=== PATIENT | female | born 1975 | race Caucasian/White ===

== ENCOUNTER 2024-10-25 12:37 | Emergency (ER) | payer BC, SELFPAY ==
--- NOTE | ~2024-10-25 | XR_ITS ---
EXAMINATION: XR abdomen obstructive series DATE: 10/25/2024 13:48 INDICATION: Nausea and vomiting. Diarrhea. TECHNIQUE: Supine and upright views of the abdomen. FINDINGS: No prior studies for comparison. The visualized lung parenchyma is normal.. There is a nonobstructive bowel gas pattern. Gas and stool are seen throughout the colon to the level of the rectum. There is no free air. There are surgical changes in the pelvis. IMPRESSION: 1. No acute abdominal abnormality. Reviewed, dictated and finalized at location A.
--- OUTSIDE RECORDS SUMMARY | 2024-10-25 12:54 | XMS_ITS | Clinical Summary ---
Author Organization [facility] Address [address] [place] [id number] Phone Care Team Providers Care Ceramics Artist Name Role Phone Provider, None Primary Care Provider Unavailabl e Allergies No known active allergies Medications BUSPIRONE HCL PO Take by mouth. Activ e FLUOXETINE HCL PO Take by mouth. Activ e diphenoxylate-a tropine (LOMOTIL) 2.5-0.025 MG Tablet Take 1 Tab by mouth 4 times daily as needed for Diarrhea. 15 Tab 0 Active Additional Information Patient not taking.Reported on 09/24/2020 Active Problems No known active problems Social History Tobacco Use Types Packs/Day Years Used Date Smoking Tobacco: Never Smokeless Tobacco: Never Alcohol Use Standard Drinks/Week Comments Not Currently 0 (1 standard drink = 0.6 oz pur e alcohol) Comments No Sex and Gender Information Value Date Recorded Sex Assigned at Not on file Legal Sex Female 10:25 PM CDT Gender Identity Not on file Sexual Orientation Not on file Last Filed Vital Signs Vital Sign Reading Time Taken Comments Blood Pressure 112/62 09/24/2020 11:20 AM WELL POINT PUMPING SUPERVISOR Pulse 78 09/24/2020 11:20 AM WELL POINT PUMPING SUPERVISOR Temperature 36.6 C (97.8 F) 09/24/2020 11:20 AM WELL POINT PUMPING SUPERVISOR Respiratory Rate 20 09/24/2020 11:20 AM WELL POINT PUMPING SUPERVISOR Oxygen Saturation 98% 09/24/2020 11:20 AM WELL POINT PUMPING SUPERVISOR Inhaled Oxygen Concentration - - Weight 54.4 kg (120 lb) 01/29/2020 5:19 PM CDT Height 151.1 cm (4' 11.5 ) 01/29/2020 5:19 PM CD T Body Mass Index 23.83 01/29/2020 5:19 PM CDT Plan of Treatment Health Maintenance Due Date Last Done Comments Hepatitis C Virus (HCV) Screening 1976 Mammogram 1976 Hepatitis B Immunization (1 of 3 - 19+ 3-dose series) 12/29/1995 Pap Smear 1997 Cervical Cancer Screening (CCS) 2006 HPV/Cotest 2006 Discussion re Starting/Frequ ency of Mammograms 2016 Colonoscopy 2021 Colorectal Cancer Screening 2021 Influenza Immunization (#1) 2024 SARS-COV-2 Immunization ( season) 2024 Respiratory Syncytial Virus (RSV) Immunization (Adult) (1 - 1-dose 75+ series) 12/29/2051 DTaP/Tdap/Td Immunization Discontinued 06/21/2019 TdaP Immunization Completed 06/21/2019 Meningococcal Immunization (ACWY) Aged Out No longer eligible based on patient's age to complete this topic Pneumococcal Immunization Combined Aged Out No longer eligible b ased on patient's age to complete this topic Rotavirus Immunization Aged Out No lo nger eligible based on patient's age to complete this topic Insurance MEDICAID [place] [employer] [place] Care Teams Ceramics Artist Relationship Specialty Start Date End Date Provider, None MARISELA PCP - General 01/29/20
--- OUTSIDE RECORDS SUMMARY | 2024-10-25 12:54 | XMS_ITS | CONTINUITY OF CARE DOCUMENT ---
Author Name rolf bansal Address Unknown Organization [facility] Address [address] [place] [address] Phone [phone] Care Team Providers Care Lawn Maintenance Worker Name Role Phone rolf bansal Unavailable Unavailable INSURANCE PROVIDERS Payer name Policy type / Coverage type [employer] [facility] AND FAMILY SERVICES Medicaid 0 [id number]
--- OUTSIDE RECORDS SUMMARY | 2024-10-25 12:54 | XMS_ITS | Clinical Summary ---
Author Organization [facility] Address [address] [place] [address] Care Team Providers Care Take Away Worker Name Role Phone Sophie Lugo NP Unavailable Fernando Aguilar MD Unavailable Puneet Fernandez MD Primary Care Provider [phone] Allergies Active Allergy Reactions Criticality Noted Date Comments Propoxyphene-Acetami nophen Nausea & Vomiting Low 07/07/2021 Hydrocodone-Acetamin ophen Other (See comments) Low 07/07/2021 Uncontrollable shaking Medications famotidine (PEPCID) 20 mg tablet Take 1 tablet (20 mg total) by mouth as needed 2 Active ALPRAZolam (XANAX) 0.25 mg tablet Take 1 tablet (0.25 mg total) by mouth daily as needed 2 Active food supplemt, lactose-reduced 0.05 gram- 1.5 kcal/mL liquid Take 1 Units by mouth daily For nutritional supplement BMI >18 237 mL 1 3 Active fluticasone propionate (FLONASE) 50 mcg/actuation nasal spray Administer 2 sprays into each nostril 2 (two) times a day 60 mL 11 3 Active megestroL 40 mg/mL suspension Take 5 mL (200 mg total) by mouth daily 4 Active Active Problems Problem Noted Date Diagnosed Date Stress at work 06/06/2024 Assessment & Plan (09/06/2024 4:34 PM FIRE CONTROL ASSISTANT): Patient Xanax 0.25 half tablet very infrequently maybe once a week. Eating disorder 06/06/2024 Assessment & Plan (09/06/2024 4:31 PM FIRE CONTROL ASSISTANT): Patient has lost her taste with COVID and sometimes her taste returns partially other times not present. Patient states she lost 40 lb when she developed COVID. Gradually gained weight back. Patient's BMI is 16.5. Anosmia 11/23/2023 Numbness and tingling of upp er and lower extremities of both sides 11/23/2023 Tachycardia 11/23/2023 Vaccine counseling 06/19/2023 Body mass index (BMI) less than 16.5 06/19/2023 History of depression 03/11/2023 COVID-19 [employer] [place] manifes ting chronic loss of smell and taste 03/11/2023 SOB (shortness of breath) 02/03/2023 Assessment & Plan (09/06/2024 4:32 PM FIRE CONTROL ASSISTANT): Depressed at times symptoms started after having COVID. 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 She has been followed by the long COVID clinic at [facility]. Chronic diarrhea 11/10/2020 Assessment & Plan (11/10/2020 5:42 PM CDT): Patient has chronic intermittent diarrhea. Asymptomatic at this point. No worrisome signs. Discussed with the patient to call our office for further evaluation if symptoms recurred. She will need screening colonoscopy in 2 years. Mood disorder 06/24/2019 Encounter for preventive health examination 02/2019 Assessment & Plan (09/06/2024 4:48 PM FIRE CONTROL ASSISTANT): This is a patient here to establish care with me I have not seen her before she has a significant past history of long-haul COVID developing pneumonia lasted 3 weeks patient never returned to her previous state of health she has lost 40 lb at his stabilize. Weight loss attributed significant to the loss of taste she has respiratory problems shortness of breath does not tolerate inhalers because of tachycardia. [facility] She is stable in no distress at this time will proceed in getting hepatitis-B hepatitis-C testing, colon cancer screening and mammogram. Encounters Date Type Department Care Team Description 09/22/2024 Results Follow-Up [facility] [address] [place] [address] Puneet Fernandez MD 09/18/2024 3:30 PM FIRE CONTROL ASSISTANT Lab [facility] [address] [place] [address] Need for hepatitis C screening test; Need for hepatitis B screening test 09/18/2024 3:00 PM FIRE CONTROL ASSISTANT Ancillary Procedure [facility] [address] [place] [address] Encounter for screening mammogram for breast cancer 09/06/2024 3:30 PM FIRE CONTROL ASSISTANT Office Visit [facility] [address] [place] [address] Puneet Fernandez MD Need for hepatitis B screening test (Primary Dx); Need for hepatitis C screening test; Encounter for screening mammogram for breast cancer; Stress at work; Long COVID; Encounter for preventive health examination from Last 3 Months Immunizations Immunization Administration Dates Next Due Influenza, Unspecified 09/06/2024(Deferred: Emily ent Refused) Tdap 06/21/2019 Surgical History Surgery Date Site/Laterality Comments APPENDECTOMY Medical History Medical History Date Comments Depression Smoking previous, quit 2 006 Anemia Family History Medical History Relation Name Comments Cancer Mother Holly Arenas Stroke Mother Holly Arenas Relation Name Status Comments Mother Holly Arenas (Age 59) Social History Tobacco Use Types Packs/Day Years Used Date Smoking Tobacco: Former Cigarettes Smokeless Tobacco: Never Tobacco Cessation:Counseling Given: Not Answered Alcohol Use Standard Drinks/Week Comments Not Currently 0 (1 standard drink = 0.6 oz pur e alcohol) rarely PHQ-2 Answer Date Recorded PHQ-2 Total Score (If total score is 3 or more points, staff should administer the PHQ-9) 2 09/06/2024 Comments No Sex and Gender Information Value Date Recorded Sex Assigned at Not on file Legal Sex Female 7:57 AM FIRE CONTROL ASSISTANT Gender Identity Not on file Sexual Orientation Not on file Obstetrics History Para Term AB IAB SAB Ectopic Multiple Livin g Live Births 5 5 5 Date Outcome GA Total Labor Labor/2nd/3rd Weight Sex Type Anes PTL Ayesha A1 A5 Name Clin Term Term Term Term Term Last Filed Vital Signs Vital Sign Reading Time Taken Comments Blood Pressure 116/60 09/06/2024 3:35 PM FIRE CONTROL ASSISTANT Pulse 95 09/06/2024 3:35 PM FIRE CONTROL ASSISTANT Temperature 36.9 C (98.4 F) 09/06/2024 3:35 PM FIRE CONTROL ASSISTANT Respiratory Rate 16 09/06/2024 3:35 PM FIRE CONTROL ASSISTANT Oxygen Saturation 99% 09/06/2024 3:35 PM FIRE CONTROL ASSISTANT Inhaled Oxygen Concentration - - Weight 38.3 kg (84 lb 6.4 oz) 09/06/2024 3:35 PM FIRE CONTROL ASSISTANT Height 152.4 cm (5') 09/06/2024 3:35 PM FIRE CONTROL ASSISTANT Body Mass Index 16.48 09/06/2024 3:35 PM FIRE CONTROL ASSISTANT Plan of Treatment Health Maintenance Due Date Last Done Comments Cervical Cancer Screening 1976 Colon Cancer Screening-Colonoscopy 1976 Pneumococcal vaccine <65 (1 of 2 - PCV) 12/29/1995 Zoster Vaccine (1 of 2) 12/29/1995 Influenza Vaccine (Season Ended) 2025 Depression Screening 09/06/2025 09/06/2024 Regular Well Visit/Exam 18-64 09/06/2025 09/06/2024 Breast Cancer Screening-Mammogram 09/18/2025 09/18/2024, 05/11/2023, 03/27/2022, Additional history exists DTaP/Tdap/Td Vaccine (2 - Td or Tdap) 06/21/2029 06/21/2019 Hepatitis B Screening Completed 09/18/2024 Hepatitis C Screening Completed 09/18/2024 Procedures Procedure Name Priority Date/Time Associated Diagnosis Comments SCREENING MAMMOGRAM BILATERAL W IRINEO Schedule Routine, Read Routine (OP Routine) 09/18/2024 2:59 PM FIRE CONTROL ASSISTANT Encounter for screening mammogram for breast cancer HEPATITIS B SURFACE ANTIGEN Routine 09/18/2024 2:57 PM FIRE CONTROL ASSISTANT Need for hepatitis B screening test HEPATITIS B CORE ANTIBODY, TOTAL Routine 09/18/2024 2:57 PM FIRE CONTROL ASSISTANT Need for hepatitis B screening test HEPATITIS B SURFACE ANTIBODY (IMMUNE STATUS) Routine 09/18/2024 2:57 PM FIRE CONTROL ASSISTANT Need for hepatitis B screening test HEPATITIS C ANTIBODY Routine 09/18/2024 2:57 PM FIRE CONTROL ASSISTANT Need for hepatitis C screening test from Last 3 Months Results * Screening Mammogram Bilateral W Irineo (09/18/2024 2:59 PM FIRE CONTROL ASSISTANT) Anatomical Region Laterality Modality Breast Bilateral Mammography 09/18/2024 4:45 PM FIRE CONTROL ASSISTANT Impressions 09/18/2024 4:45 PM FIRE CONTROL ASSISTANT There is no mammographic evidence of malignancy. A 1 year screening mammogram is recommended. BI-RADS: 1 - Negative. The patient has been or will be contacted. The patient will be entered into a reminder system with a target due date of 1 year for her next mammogram. Electronically signed by: Yobani Kam M.D. Narrative 09/18/2024 4:45 PM FIRE CONTROL ASSISTANT EXAMINATION: SCREENING MAMMOGRAM BILATERAL W IRINEO ORDERING HEALTHCARE PROVIDER: PUNEET FERNANDEZ HISTORY: Routine screening mammography. COMPARISON: 05/11/2023, 03/27/2022, 12/03/2020 TECHNIQUE: CC and MLO views of the bilateral breasts were obtained with digital technique using breast tomosynthesis with C view. Computer aided detection was utilized. FINDINGS: DENSITY: The breasts are extremely dense, which lowers the sensitivity of mammography. BREASTS: There are no suspicious masses, suspicious calcifications, or other suspicious findings in either breast. There has been no suspicious interval change. Puneet Fernandez MD IMG MAMMO PROCEDURES Final Result * Hepatitis C antibody Blood (09/18/2024 2:57 PM FIRE CONTROL ASSISTANT) Hep C Ab Nonreactive Nonreactive Comment: Interpretive Data Nonreactive: Antibodies to HCV not detected. Does NOT exclude the possibility of recent exposure to HCV. Equivocal: Equivocal for HCV antibodies. Supplemental molecular testing will be automatically performed to determine infection status in accordance with current CDC screening recommendations. Reactive: Positive for HCV antibodies. This may represent current or past HCV infection. Supplemental molecular testing will be automatically performed to determine current infection status in accordance with current CDC screening recommendations. Interpretive data was last revised on 2019. Testing performed by: [facility], [address] [place] [address]., [id number] Blood 09/18/2024 2:57 PM FIRE CONTROL ASSISTANT 09/18/2024 7:34 PM FIRE CONTROL ASSISTANT Puneet Fernandez MD LAB MICROBIOLOGY - GENERAL ORDERABLES Final Result Performing Organization Address City/[facility]/ZIP Co de Phone Number [facility] [address] [facility] [place] [address] * Hepatitis B core antibody, total Blood (09/18/2024 2:57 PM FIRE CONTROL ASSISTANT) Hep B core IgG/IgM Nonreactive Nonreactive Comment:Testing performed by : [facility], [address] [place] [address]., [id number] Blood 09/18/2024 2:57 PM FIRE CONTROL ASSISTANT 09/19/2024 10:06 AM FIRE CONTROL ASSISTANT Puneet Fernandez MD LAB MICROBIOLOGY - GENERAL ORDERABLES Final Result [facility] [address] [facility] Department [place] [place] [address] * Hepatitis B surface antibody (immune status) Blood (09/18/2024 2:57 PM FIRE CONTROL ASSISTANT) HBsAb (immune status) Nonreactive Comment: Interpretive Data Nonreactive: This result is consistent with a lack of immunity to Hepatitis B Virus when used in the setting of routine screening. Equivocal: The immune status of the individual should be further assessed, if appropriate, after consideration of clinical status, risk factors, and additional diagnostic information. Reactive: This result is consistent with immunity to Hepatitis B Virus when used in the setting of routine screening. Current interpretive data was last revised on 19. Testing performed by: [facility], [address] [place] [address]., [id number] Blood 09/18/2024 2:57 PM FIRE CONTROL ASSISTANT 09/18/2024 7:34 PM FIRE CONTROL ASSISTANT Puneet Fernandez MD LAB MICROBIOLOGY - GENERAL ORDERABLES Final Result Performing Organization Address [facility] de Phone Number [facility] [address] [facility] Department [place] [address] * Hepatitis B Surface Antigen Blood (09/18/2024 2:57 PM FIRE CONTROL ASSISTANT) Pathologist [facility] HepBsAg Nonreactive Nonreactive Comment:Testing performed by : [facility], [address] [place] [address]., [id number] Blood 09/18/2024 2:57 PM FIRE CONTROL ASSISTANT 09/18/2024 7:34 PM FIRE CONTROL ASSISTANT Puneet Fernandez MD LAB MICROBIOLOGY - GENERAL ORDERABLES Final Result Performing Organization Address City/[facility] Co de Phone Number [facility] [address] [facility] [place] [address] from Last 3 Months Insurance [employer] BLUE [employer] PA [employer] Care Teams Take Away Worker Relationship Specialty Start Date End Date Puneet Fernandez MD [address] [address] PCP - General Internal Medicine 09/06/24 Sophie Lugo NP [address] [facility] [address] DIV IM INFECTIOUS DISEASE, [facility] [address] [place] [address] Nurse Practitioner Nurse Practitioner 05/18/23 Fernando Aguilar MD [address] [facility] [place] [address] Consulting Physician Pulmonary Disease 05/18/23 Naomi Fernandez, [facility] [address] [facility] [address] Sap Basis Administrator Infectious Diseases 05/31/22
--- OUTSIDE RECORDS SUMMARY | 2024-10-25 12:54 | XMS_ITS | Referral Summary ---
Author Organization [facility] Address [address] [place] [address] Care Team Providers Care Flight Physician Name Role Phone Sophie Lugo NP Unavailable Fernando Aguilar MD Unavailable Eyad Fernandez MD Primary Care Provider [phone] Encounters Date Type Department Care Team Description 09/22/2024 Results Follow-Up [facility] [address] [place] [address] Eyad Fernandez MD 09/18/2024 3:30 PM [facility] 1 [facility] [address] [place] [id number] Need for hepatitis C screening test; Need for hepatitis B screening test 09/18/2024 3:00 PM [facility] Ancillary Procedure [facility] 1 [facility] [address] [place] [address] Encounter for screening mammogram for breast cancer 09/06/2024 3:30 PM [facility] Office Visit [facility] [address] [facility] [address] [place] [address] Eyad Fernandez MD Need for hepatitis B screening test (Primary Dx); Need for hepatitis C screening test; Encounter for screening mammogram for breast cancer; Stress at work; Long COVID; Encounter for preventive health examination from Last 3 Months Allergies Active Allergy Reactions Criticality Noted Date [...] 06/06/2024 Assessment & Plan (09/06/2024 4:34 PM [facility]): Patient Xanax 0.25 half tablet very infrequently maybe once a week. Eating disorder 06/06/2024 Assessment & Plan (09/06/2024 4:31 PM [employer] [facility]): Patient has lost her taste with COVID [...] 02/03/2023 Assessment & Plan (09/06/2024 4:32 PM [employer] [facility] [facility]): Depressed at times symptoms started after having COVID. She did not tolerate albuterol because of significant tachycardic COVID-19 [facility] manifesting chronic fatigue 12/02/2022 Insomnia 12/02/2022 Disrupted sleep-wake cycle 12/02/2022 Weight loss 06/02/2022 COVID-19 [facility] manifesting chronic dyspnea 06/02/2022 COVID-19 long [facility]uler manifes ting chronic concentration deficit 06/02/2022 Long COVID 05/31/2022 Assessment & Plan (09/06/2024 4:35 PM [employer] [facility]): Patient advised me she was diagnosed with long COVID x3 weeks since that time she has had respiratory problems shortness of breath. She has been followed by the long COVID clinic at [facility]. Chronic diarrhea 11/10/2020 Assessment & Plan (11/10/2020 5:42 PM CDT): Patient has chronic intermittent diarrhea. Asymptomatic at this point. No worrisome signs. Discussed with the patient to call our office for further evaluation if symptoms recurred. She will need screening colonoscopy in 2 years. Mood disorder 06/24/2019 Encounter for preventive health examination 02/2019 Assessment & Plan (09/06/2024 4:48 PM [employer] [facility] [facility]): This is a patient here to establish [...] tachycardia. Patient has been followed while she COVID [facility] clinic. She is stable in no distress at this time will proceed in getting hepatitis-B hepatitis-C testing, colon cancer screening and mammogram. Immunizations Immunization Administration Dates Next Due Influenza, Unspecified 09/06/2024(Deferred: Emily ent Refused) Tdap 06/21/2019 Social History Tobacco Use Types Packs/Day Years [...] on file Legal Sex Female 7:57 AM [facility] Gender Identity Not on file Sexual Orientation Not on file Last Filed Vital Signs Vital Sign Reading Time Taken Comments Blood Pressure 116/60 09/06/2024 3:35 PM [facility] Pulse 95 09/06/2024 3:35 PM [facility] Temperature 36.9 C (98.4 F) 09/06/2024 3:35 PM [facility] Respiratory Rate 16 09/06/2024 3:35 PM [facility] Oxygen Saturation 99% 09/06/2024 3:35 PM [facility] Inhaled Oxygen Concentration - - Weight 38.3 kg (84 lb 6.4 oz) 09/06/2024 3:35 PM [facility] Height 152.4 cm (5') 09/06/2024 3:35 PM [facility] Body Mass Index 16.48 09/06/2024 3:35 PM [facility] Plan of Treatment Not on file Procedures Procedure Name Priority Date/Time Associated Diagnosis Comments SCREENING MAMMOGRAM BILATERAL W IRINEO Schedule Routine, Read Routine (OP Routine) 09/18/2024 2:59 PM [facility] Encounter for screening mammogram for breast cancer HEPATITIS B SURFACE ANTIGEN Routine 09/18/2024 2:57 PM [facility] Need for hepatitis B screening test HEPATITIS B CORE ANTIBODY, TOTAL Routine 09/18/2024 2:57 PM [facility] Need for hepatitis B screening test HEPATITIS B SURFACE ANTIBODY (IMMUNE STATUS) Routine 09/18/2024 2:57 PM [facility] Need for hepatitis B screening test HEPATITIS C ANTIBODY Routine 09/18/2024 2:57 PM [facility] Need for hepatitis C screening test from Last 3 Months Results * Screening Mammogram Bilateral W Irineo (09/18/2024 2:59 PM [facility]) Anatomical Region Laterality Modality Breast Bilateral Mammography 09/18/2024 4:45 PM [facility] Impressions 09/18/2024 4:45 PM [facility] There is no mammographic evidence of malignancy. A 1 year screening mammogram is recommended. BI-RADS: 1 - Negative. The patient has been or will be contacted. The patient will be entered into a reminder system with a target due date of 1 year for her next mammogram. Electronically signed by: Yobani Kam M.D. Narrative 09/18/2024 4:45 PM [facility] EXAMINATION: SCREENING MAMMOGRAM BILATERAL W IRINEO ORDERING HEALTHCARE PROVIDER: EYAD FERNANDEZ HISTORY: Routine screening mammography. COMPARISON: 05/11/2023, [...] There has been no suspicious interval change. Eyad Fernandez MD IMG MAMMO PROCEDURES Final Result * Hepatitis C antibody Blood (09/18/2024 2:57 PM [facility]) Hep C Ab Nonreactive Nonreactive Comment: Interpretive [...] last revised on 2019. Testing performed by: [facility], [address] [place] [address], [place]., [address] Blood 09/18/2024 2:57 PM [facility] 09/18/2024 7:34 PM [facility] Eyad Fernandez MD LAB MICROBIOLOGY - GENERAL ORDERABLES Final Result BRET [place] [address] [facility] [place] [address] * Hepatitis B core antibody, total Blood (09/18/2024 2:57 PM [facility] [facility]) Pathologist [facility] Hep B core IgG/IgM Nonreactive Nonreactive Comment:Testing performed by : [facility], [address] [place]., [address] Blood 09/18/2024 2:57 PM [facility] 09/19/2024 10:06 AM [facility] Eyad Fernandez MD LAB MICROBIOLOGY - GENERAL ORDERABLES Final Result Performing Organization Address City/[facility] Co de Phone Number BRET [place] [address] [address] [facility] [place] [address] * Hepatitis B surface antibody (immune status) Blood (09/18/2024 2:57 PM [facility]) Pathologist [facility] HBsAb (immune status) Nonreactive Comment: Interpretive Data [...] last revised on 19. Testing performed by: [address] [address] Blood 09/18/2024 2:57 PM [facility] 09/18/2024 7:34 PM [facility] Eyad Fernandez MD LAB MICROBIOLOGY - GENERAL ORDERABLES Final Result Performing Organization Address City/[facility]/ZIP Co de Phone Number BRET [place] [address] [place] [address] * Hepatitis B Surface Antigen Blood (09/18/2024 2:57 PM [facility] [facility]) Pathologist [facility] HepBsAg Nonreactive Nonreactive Comment:Testing performed by : [address] [place]., [address] Blood 09/18/2024 2:57 PM [facility] 09/18/2024 7:34 PM [facility] Eyad Fernandez MD LAB MICROBIOLOGY - GENERAL ORDERABLES Final Result Performing Organization Address City/State/[facility] Co tn Phone Number BRET [address] [facility] Department [place] [address] from Last 3 Months Insurance [facility] [employer] [place] [employer] [place] [facility] Care Teams Flight Physician Relationship Specialty Start Date End Date Eyad Fernandez MD [address] [address] PCP - General Internal Medicine 09/06/24 Sophie Lugo NP [address] [place] [address] DIV IM INFECTIOUS DISEASE, [address] [address] Nurse Practitioner Nurse Practitioner 05/18/23 Fernando Aguilar MD [address] [facility] [address] [place] [address] Consulting Physician Pulmonary Disease 05/18/23 CHEYENNE CavanaughW [address] [facility] [address] Associate School Psychologist Infectious Diseases 05/31/22
[2024-10-25 12:58] VITALS: BP 91/44; PULSE 94; RESP 20; TEMP 36.9; O2SAT 98
--- OUTSIDE RECORDS SUMMARY | 2024-10-25 12:59 | XMS_ITS | CONTINUITY OF CARE DOCUMENT ---
Author Name rolf bansal Address Unknown Organization [facility] Address [address] [facility] [address] [place] [address] Phone [phone] Care Team Providers Care Healthcare Specialist Name Role Phone rolf bansal Unavailable Unavailable INSURANCE PROVIDERS Payer name Policy type / Coverage type [employer] party ID [employer]ILY [employer] Medicaid 0 [id number]
--- NOTE | 2024-10-25 13:19 | ED.NAVMDI ---
HPI - Nausea/Vomiting/Diarrhea General Chief complaint: Nausea/Vomiting/Diarrhea Stated complaint: n/v/d/hot flashes/dizziness Time Seen by Provider: 10/25/24 13:05 Source: patient, RN notes reviewed and old records reviewed Mode of arrival: ambulatory Limitations: no limitations History of Present Illness HPI Narrative: 48-year-old female who presents to [facility] with complaints of nausea vomiting and diarrhea which started at 0230 this morning. Patient reports that she has some generalized abdominal discomfort, with abdomen soft non distended, Patient reports that she feels weak. Patient reports that she has not taken any OTC medication for her symptoms.Patient reports that she thinks she is dehydrated and has felt dizy at times today.Patient reports no blood or bilious vomiting noted. Patient states that she hawkins kept some water down for the past hour. MD elicited complaint: nausea, vomiting, diarrhea and abdominal pain Onset (ago): hour(s) (0230) Description of vomiting: food contents and watery Description of diarrhea: watery Associated nausea: Yes Location of pain: other (anterior mid abdomen) Pain scale (0-10): 3 Treatment prior to arrival: other (none) Related Data Allergies Allergy/AdvReac Type Severity Reaction Status Date / Time acetaminophen (From Allergy Unknown Unknown Verified 10/25/24 12:56 Darvocet-N) propoxyphene (From Allergy Unknown Unknown Verified 10/25/24 12:56 Darvocet-N) vicoden Allergy Unknown Unknown Uncoded 10/25/24 12:56 Review of Systems Review of Systems: CONSTITUTIONAL: Denies fever,no chills, or sweats. ENT: Denies rhinorrhea, congestion, sore throat, or otalgia. CARDIOVASCULAR: Denies chest pain, palpitations, or edema. RESPIRATORY: Denies cough or dyspnea. GASTROINTESTINAL: Reports mid abdominal pain with episodes of nausea with vomiting and diarrhea since 0230. GENITOURINARY: Denies dysuria or hematuria. SKIN: Denies rash or itching. MUSCULOSKELETAL: Denies back pain, joint pain, or myalgia. NEUROLOGIC: Denies headache, numbness, reports some weakness and intermittent dizziness All systems reviewed & are unremarkable except as noted in HPI and below PMFSH Past Medical History Medical History (Updated 10/26/24 @ 14:02 by Thea L. Kaitlin, PROTECTION OFFICER) Anxiety Surgical History Surgical History (Updated 10/25/24 @ 14:20 by Thea Madrigal NP) H/O tubal ligation Hx of appendectomy Social History Social History (Updated 10/25/24 @ 14:20 by Thea Madrigal NP) Smoking status: Current every day smoker Tobacco type: e-cigarettes/vaping Alcohol intake: unknown Substance use type: does not use Living arrangements: with family Gender identity (if verbalized by the patient): Female Comments At time of signature, agree with nursing past medical, surgical, social and family history. There is no relevant family history pertinent to the presenting complaint Exam Narrative: GENERAL: ill-appearing, well-nourished, and in no acute distress. HEAD: Normocephalic, atraumatic. EYES: PERRLA, conjunctivae clear, and EOMI. ENT: Nares clear. Mucous membranes moist. Oropharynx without edema, erythema, or lesions. Tonsils not enlarged and without exudate. NECK: Supple. No lymphadenopathy CHEST: Speaks in full sentences. No respiratory distress.SAO2 98% on room air HEART: Regular rate and rhythm. ABDOMEN: Soft, flat, nondistended. No guarding, rebound tenderness, or rigidity. No pulsatilla masses. Bowel sounds present in all four quadrants. No organomegaly. Negative Donahue?s sign. No periumbilical tenderness. No Supra public tenderness or distension. Good femoral pulses bilaterally. No hernia noted.appendectomy scar, no surface trauma. SKIN: Warm, dry, no rash. NEURO:? Alert and oriented x3. PSYCH: Normal mood and affect Course Course Emergency Course: Patient is aware of diagnosis, understands and agrees to treatment plan.? Anticipatory guidance given.? Patient agrees to follow-up as directed and is aware of reasons to seek care at the emergency department. Instructed if increased symptoms to go to the ED. Portions of this record may have been created with voice recognition software Level of Care: Express Care Visit Vital Signs Vital signs: Vital Signs Temperature 36.9 C 10/25/24 12:58 Pulse Rate 94 10/25/24 12:58 Respiratory Rate 20 10/25/24 12:58 Blood Pressure 91/44 L 10/25/24 12:58 Pulse Oximetry 98 10/25/24 12:58 Oxygen Delivery Room Air 10/25/24 12:58 Temperature 36.9 C 10/25/24 12:58 Pulse Rate 94 10/25/24 12:58 Respiratory Rate 20 10/25/24 12:58 Blood Pressure 91/44 L 10/25/24 12:58 Pulse Oximetry 98 10/25/24 12:58 Oxygen Delivery Room Air 10/25/24 12:58 Reviewed MDM - Nausea/Vomiting/Diarrhea Differential Diagnosis Differential diagnosis: Likely gastroenteritis, dehydration and other (nausea vomiting diarrhea, viral syndrome, viral infection, Infleuenza or COVID) Medical Records Attestation: I reviewed the patient's medical records. Lab Data Attestation: I reviewed the patient's lab results. Lab results narrative: influenza A negative, Influenza B negative, COVID antigen negative Labs: Lab Results 10/25/24 Range/Units 12:55 POC Influenza A Ag Negative (Negative) POC Influenza B Ag Negative (Negative) POC SARS CoV-2 Ag Negative (Negative) reviewed Imaging Data My impression: no acute abdominal abnormality no free air, non obstructive gas pattern Radiologist's impression: [place] [address] XRay Report Signed Patient: Laura Mccarty : 1975 MR#: [id number] Age: 48 Acct:[id number] Loc: [facility] ADM Date: 10/25/24Attending Dr: Ordering Physician: Thea Madrigal APRN Date of Service: 10/25/24 Procedure(s): XR abdomen obstructive series Accession Number(s): [id number] cc: Thea Madrigal APRN; UNKNOWN,DOCTOR~ EXAMINATION: XR abdomen obstructive series DATE: 10/25/2024 13:48 INDICATION: Nausea and vomiting. Diarrhea. TECHNIQUE: Supine and upright views of the abdomen. FINDINGS: No prior studies for comparison. The visualized lung parenchyma is normal.. There is a nonobstructive bowel gas pattern. Gas and stool are seen throughout the colon to the level of the rectum. There is no free air. There are surgical changes in the pelvis. IMPRESSION: 1. No acute abdominal abnormality. Reviewed, dictated and finalized at location A. Please be advised this is a medical document. It is intended for [id number] communication. It is written in medical language and may contain unfamiliar abbreviations or verbiage. Medical documents are intended to carry relevant information, facts as evident, and the clinical opinion of the practitioner at the time of the encounter. This report may have been done utilizing a voice recognition system. Attempts have been made to correct errors. However, there may be uncorrected grammatical, spelling, and recognition errors present. The file time of this note does not necessarily represent the time of service. Dictated By: Teo Melo MD 10/25/24 1404 Signed By: <Electronically signed by Teo Melo MD in OV> Critical Care Time Critical Care Time Critical Care Time: No Discharge Plan Discharge Clinical Impression: Gastroenteritis Patient Disposition: Home Condition: Stable Instructions: Antibiotic Form, Clear Liquid Diet (ED), Gastroenteritis (ED) Additional Instructions: Clear liquids for the next 8-10 hours, then advance to a bland diet as tolerated A bland diet can consist of--BRAT diet which is bananas, rice, applesauce, and toast Avoid fried, greasy, fatty, fried foods Avoid caffeine, nicotine, and alcohol Return to your regular diet in the next 3-4 days Medication as directed for nausea and vomiting Sometimes ibuprofen/Aleve can cause increased stomach upset Uanm-nol-uhmqszd Imodium if develop diarrhea Follow-up with her PCP if continued problems or uncontrolled pain If any increased pain or any increased symptoms go directly to the emergency room Patient Language: Algerian Prescriptions: New ondansetron 4 mg tablet,disintegrating 4 mg PO Q6H PRN (Reason: nausea and vomiting) Qty: 14 0RF Follow-up/Referrals: UNKNOWN,DOCTOR [Primary Care Provider] - Time of Disposition: 14:10 Quality [place] Coma Scale Eyes: Open Verbal: Oriented and Alert Motor: Follows Commands [place] Coma Total Score: 15
[2024-10-25 13:50] LABS: EDCOVIDSCREEN Negative (Negative); EDINFLUASCREEN Negative (Negative); EDINFLUBSCREEN Negative (Negative)
== END 2024-10-25 14:16 | disposition home or self-care (01) ==
PROVIDERS: Emergency Provider Registered Nurse
DX: K52.9 Noninfective gastroenteritis and colitis, unspecified (principal); Z20.822 Contact with and (suspected) exposure to COVID-19; F17.290 Nicotine dependence, other tobacco product, uncomplicated
CPT/HCPCS: 74019; 87426; 87804; 99213; G0463